=== PATIENT | female | born 1970 | race Caucasian/White ===

== ENCOUNTER → 2016-06-01 | Outpatient (CLI) | payer BC | LOC: RAD 16:46 | DX: R07.9 Chest pain, unspecified (principal) | CPT/HCPCS: 71020 ==

== ENCOUNTER → 2020-10-07 | Outpatient (CLI) | payer BC ==
[~2020-10-07] MED LIST: BENTYL 20MG TAB20 MG PO; NORCO 5-325 TA1 EACH PO; PROTONIX 40 MG40 M1 PO; TORADOL 10 MG T10 MG PO; ZOFRAN ODT 4 MG4 MG PO; ZOFRAN ODT 4 MG4 MG SL
== END ==
LOC: KOH-I 10:30
DX: R68.89 Other general symptoms and signs (principal)
CPT/HCPCS: 70450

== ENCOUNTER → 2020-11-26 | Outpatient (CLI) | payer BC | LOC: NM 09:04 | DX: R74.8 Abnormal levels of other serum enzymes (principal) | CPT/HCPCS: 78306; A9503 ==